=== PATIENT | male | born 1975 | race Caucasian/White ===

== ENCOUNTER → 2019-06-16 12:12 | Outpatient (BNVA) | payer BC, SELFPAY | PROVIDERS: Family Provider Nurse Practitioner Family; PCP Nurse Practitioner Family; Visit Provider Nurse Practitioner Family | DX: E11.9 Type 2 diabetes mellitus without complications (principal); R53.83 Other fatigue; E55.9 Vitamin D deficiency, unspecified; D64.9 Anemia, unspecified; E78.2 Mixed hyperlipidemia; E87.6 Hypokalemia | CPT/HCPCS: 36415; 80053; 80061; 81001; 81003; 82306; 82607; 82746; 83036; 83540; 83921; 84443; 85025 ==

== ENCOUNTER 2020-03-01 10:43 | Outpatient (CLI) | payer BC, SELFPAY ==
--- NOTE | 2020-03-01 11:05 | XR_ITS ---
WS: [id number] Cervical spine, 4 views, 03/01/2020 Clinical Data: headache neck pain Comparison: None. Findings: No compression fractures are seen. The disc heights are normal. There is no prevertebral so ft tissue swelling. The odontoid is unremarkable. The soft tissues of the neck and the lung apices ar e normal. XR/XR cervical spine 3V* [id number] Impression: Negative cervical spine.
== END 2020-03-01 10:44 | disposition home or self-care (01) ==
PROVIDERS: Family Provider Nurse Practitioner Family; PCP Nurse Practitioner Family; Visit Provider Nurse Practitioner Family
DX: M54.2 Cervicalgia (principal); R51.9 Headache, unspecified; E11.9 Type 2 diabetes mellitus without complications; R53.83 Other fatigue; E78.6 Lipoprotein deficiency; E55.9 Vitamin D deficiency, unspecified
CPT/HCPCS: 72040; 80053; 80061; 81003; 82306; 83036; 84443; 85025

== ENCOUNTER → 2020-06-13 14:10 | Outpatient (BNVA) | payer BC, SELFPAY | PROVIDERS: Family Provider Nurse Practitioner Family; PCP Nurse Practitioner Family; Referring Provider Nurse Practitioner Family; Visit Provider Specialist | DX: G43.019 Migraine without aura, intractable, without status migrainosus (principal); M54.2 Cervicalgia | CPT/HCPCS: 99203; 99204 ==

== ENCOUNTER 2020-10-19 14:36 | Emergency (ER) | payer BC, SELFPAY ==
[2020-10-19 15:09] VITALS: BP 133/81; PULSE 104; RESP 18; TEMP 36.9; O2SAT 96; BMI 32.1
[2020-10-19 16:29] VITALS: BP 109/73; PULSE 96; RESP 16; O2SAT 97
--- NOTE | 2020-10-19 16:49 | W.ED.GENADLT ---
Documented by User: FERNANDA Azul 10/20/20 07:14 HPI - General Adult General: Chief complaint: General Medical Stated complaint: Spotted fever SX unresponsive to [place] Time Seen by Provider: 10/19/20 16:24 Source: patient Mode of arrival: ambulatory Limitations: no limitations History of Present Illness: HPI narrative: Patient is a nice 45-year-old gentleman who presents to ED today along with his for complaints of generalized malaise, fatigue, and joint pains. Patient tells me approximately 3 to 4 weeks ago he noticed a tick bite to his left foot. He states approximately a week later he began feeling fatigued, experiencing joint pain, chills, and exercise intolerance. He states he was recently seen at a facility through [facility] and told it could be tick illness. He is on a 14-day course of doxycycline. He does report he felt slightly improved while taking the medication. He has not had any documented fevers. He does not have any abdominal pain, nausea, vomiting, changes to bowel movements. He has had one episode of a severe headache approximately a week ago however patient does have a history of migraines. No visual changes. No rash. Denies any skin changes at tick bite site. Associated symptoms: Reports headache(s) (had a migraine about a week ago but pain has subsided) and malaise; Deny chest pain, confusion, diaphoresis, nausea, rash, palpitations, syncope or vomiting Review of Systems Const: Reports: body aches, change in appetite, fatigue and malaise; Denies: fever(s), chills, change in weight, night sweats, diaphoresis, change in sleep pattern or daytime sleepiness Eyes: Denies: change in vision, blurry vision, photophobia, floaters or seeing flashes ENMT: Denies: throat pain, odynophagia, nasal congestion or sinus pain Card: Reports: dyspnea on exertion; Denies: chest pain, palpitations, irregular heart rhythm, edema, swelling of feet/ankles, lightheadedness, syncope, pre-syncope, orthopnea, leg pain with exertion or acrocyanosis Resp: Denies: productive cough, non-productive cough, wheezing, hemoptysis or chest congestion GI: Denies: abdominal pain, nausea, vomiting, diarrhea, change in bowel habits or change in stool character : Denies: flank pain, difficulty urinating, dysuria, urinary frequency, urinary urgency or urinary hesitancy Musc: Reports: joint pain (reports diffuse joint aches); Denies: neck pain, back pain, extremity pain, extremity swelling, joint swelling, joint redness, joint warmth, joint stiffness, limited range of motion or muscle weakness Skin/Breast: Reports: other (tick bite a few wks ago); Denies: rash Neuro: Reports: headache(s) (had a migraine about a week ago but pain has subsided); Denies: numbness in extremities, weakness in extremities, sensory changes, lack of coordination, difficulty walking, frequent falls, dizziness, vertigo, confusion, behavioral changes, Slurred speech present, difficulty communicating thoughts or seizure-like activity Psych: Denies: anxiety or depression PFSH ED PFSH: Medical History (Updated 10/19/20 @ 18:11 by JAVIER Madison) Bee sting allergy Bronchitis Cervical spine pain Contact dermatitis Diabetes mellitus, type II Patient is Type II DM. He is taking Metformin ER 1000 mg daily and weekly Ozempic. He is compliant with blood glucose monitoring at home. Environmental and seasonal allergies Patient has a history of chronic sinusitis with previous sinus surgery. He takes Sudafed as needed for decongestant. Fatigue Headache History of colon polyps Muscle spasm Shrimp allergy Sinusitis Vitamin D deficiency Will obtain updated labs for anemia, including iron and vitamin B12 Surgical History H/O colonoscopy Colonoscopy done August 01, 2018 due to history of colon polyps. Normal, repeat in 5 years. (July 2023) History of appendectomy History of sinus surgery Status post left rotator cuff repair Social History Smoking and tobacco status: never smoked Second hand smoke exposure: No Smoking risk assessment/counseling performed?: No Alcohol intake: never Desire information about alcohol rehabilitation?: No Counseling given: No Desire information about substance/drug rehabilitation?: No Counseling given: No Physical Exam Const: COMMON NORMALS: no acute distress, patient oriented x3, no limitations, alert and well nourished GENERAL APPEARANCE: cooperative ORIENTATION/CONSCIOUSNESS: Yes awake, Yes oriented to person, Yes oriented to place and Yes oriented to time HENMT: COMMON NORMALS: normocephalic and atraumatic HEAD & SCALP: normocephalic and atraumatic Neck/C-Spine: COMMON NORMALS: full ROM, no lymphadenopathy and no meningeal signs Resp: COMMON NORMALS: normal respiratory effort and clear to auscultation bilaterally AUSCULTATION: clear to auscultation bilaterally Cardio: COMMON NORMALS: regular rate and regular rhythm RATE: regular rate RHYTHM: regular rhythm GI: COMMON NORMALS: Normal to inspection, nondistended, normoactive bowel sounds present, Soft to palpation, non-tender, No hepatosplenomegaly present and no masses PALPATION: Yes Soft to palpation and Yes No hepatosplenomegaly present Back/Pelvis: COMMON NORMALS: thoracic and lumbar spine normal to inspection, no thoracic nor lumbar tenderness and thoraco-lumbar ROM normal Extremity: COMMON NORMALS: normal to inspection, full ROM, capillary refill normal, no joint enlargement, no clubbing, cyanosis or edema, no calf tenderness and no pedal edema GENERAL: Yes normal exam except as noted Neuro: KERWIN COMA SCALE: document GCS findings Closplint coma scale eye opening: Spontaneous Closplint coma scale verbal response: Orientated Kerwin coma scale motor response: Obey commands Kerwin coma scale total score: 15 COMMON NORMALS: patient oriented x3, CN's II-XII intact bilaterally, moves all extremities, no focal motor deficits, no sensory deficits noted and gait normal SENSORIUM/ORIENTATION: Yes alert, Yes oriented to person, Yes oriented to place and Yes oriented to time MENINGEAL SIGNS: Yes no meningeal signs Skin: COMMON NORMALS: no rashes or lesions noted GENERAL SKIN EXAM: no rashes or lesions noted TRAUMA: no lacerations or abrasions Course Vital Signs: Vital signs: Vital Signs Temperature 98.5 F 10/19/20 15:09 Pulse Rate 96 10/19/20 16:29 Respiratory Rate 16 10/19/20 16:29 Blood Pressure 109/73 10/19/20 16:29 Pulse Oximetry 97 10/19/20 16:29 MDM - General Adult MDM Narrative: Medical decision making narrative: Care transferred to JAVIER Godwin pending lab results. Lab Data: Labs: Lab Results 10/19/20 10/19/20 10/19/20 Range/Units 17:10 17:10 17:10 WBC 9.4 (4.0-10.0) 10^3/ uL RBC 5.54 H (4.1-5.3) 10^6/u L Hgb 16.7 H (11.7-16.6) g/dL Hct 49.0 (42.0-52.0) % MCV 88.4 (80-94) fL MCH 30.1 (28.0-34.0) pg MCHC 34.1 (30.0-36.0) g/dL RDW 12.4 (12.1-15.1) % Plt Count 207 (130-400) 10^3/c mm MPV 9.0 (7.4-10.4) fL Neut % (Auto) 36.3 % Lymph % (Auto) 50.1 % [place] % (Auto) 8.8 % Eos % (Auto) 2.7 % Baso % (Auto) 1.6 % Neut # (Auto) 3.41 (1.8-7.7) 10^3/u L Lymph # (Auto) 4.7 (0.8-4.8) 10^3/u L [place] # (Auto) 0.8 (0.2-0.9) 10^3/u L Eos # (Auto) 0.3 (0.0-0.8) 10^3/u L Baso # (Auto) 0.2 H (0.0-0.1) 10^3/u L Nucleated RBC % (a uto) 0 % Nucleated RBCs # 0.0 /100WBC D-Dimer 0.89 H (0-0.59) ug/mIFE U Sodium 135 L (136-145) mmol/L Potassium 4.0 (3.5-5.1) mmol/L Chloride 97 L (98-107) mmol/L Carbon Dioxide 27 (22-29) mmol/L Anion Gap 15.0 (5-19) BUN 11 (6-20) mg/dL Creatinine 0.8 (0.7-1.2) mg/dL GFR Calculation 103.6 (90-130) mL/min Glucose 154 H (65-115) mg/dL Calculated Osmolal ity 282 L (285-295) mOsm/k g Calcium 9.1 (8.5-10.5) mg/dL Total Bilirubin 0.7 (0.15-1.2) mg/dL AST 44 H (0-40) U/L ALT 65 H (0-41) U/L Alkaline Phosphata se 77 (40-130) IU/L Creatine Kinase 24 L (39-308) U/L C-Reactive Protein 28.0 H (0.0-4.9) mg/L Total Protein 7.4 (6.6-8.7) g/dL Albumin 4.2 (3.5-5.2) g/dL Globulin 3.2 (1.3-4.6) g/dL Discharge Plan Discharge Patient Disposition: Home Clinical Impression: Fatigue Qualifiers: Fatigue type: unspecified Qualified Code(s): R53.83 - Other fatigue Tick bite Qualifiers: Encounter type: subsequent encounter Qualified Code(s): W57.XXXD - Bitten or stung by nonvenomous insect and other nonvenomous arthropods, subsequent encounter Condition: Stable Prescriptions: No Action epinephrine [EpiPen 2-Luke] 0.3 mg/0.3 mL auto-injector 0.3 mg IM Q10M PRN (Reason: bee sting allergy ) Qty: 2 RF: 5 hydroxyzine HCl 25 mg tablet 25 mg PO Q8H PRN (Reason: itching) 10 Days Qty: 20 RF: 1 omeprazole 40 mg capsule,delayed release(DR/EC) 40 mg PO DAILY Qty: 90 RF: 5 lidocaine HCl [Xylocaine] 10 mg/mL (1 %) solution 2 ml IM ONCE Qty: 1 RF: 0 dexamethasone sodium phosphate 10 mg/mL solution 10 mg IM ONCE Qty: 1 RF: 0 metformin 500 mg tablet extended release 24 hr See Rx Instructions .ROUTE .COMPLEX Qty: 360 RF: 0 Ozempic 1 mg/dose (2 mg/1.5 mL) pen injector See Rx Instructions .ROUTE .COMPLEX Qty: 4 RF: 0 doxycycline hyclate 100 mg capsule 100 mg PO DAILY RF: 0 prednisone 20 mg tablet 40 mg PO DAILY RF: 0 methocarbamol 750 mg tablet 750 mg PO BEDTIME RF: 0 Zyrtec 10 mg capsule 10 mg PO DAILY RF: 0 Discharge Orders: Discharge ED (Routine); Ordered 10/19/20 Ordered By: Agustin Capone Referrals: DOLORES Ontiveros, [facility] [Primary Care Provider] - Discharge Diet: Usual diet Discharge Activity: Increase activity as tolerated Patient Instructions: Opioid Safety Activity Restrictions/Additional Instructions: Drink plenty of fluids. Stay out of the heat of the day. Activity as tolerated. Continue with routine medications as directed. Continue with doxycycline 100 mg twice a day as scheduled. Follow-up with primary care in 2 to 3 days. Return to the ER for high fever, shortness of breath, or new concerns. Sign Out Sign Out Data: Patient Sign Out occurred on 10/19/20 at 17:06. Patient's care was discussed, and care was transferred from to Agustin Capone. Coding Level of Care Code ED Mosaic Tiler for Chg Fwd Exam Comprehensive Documented by User: JAVIER Madison 10/19/20 18:15 HPI - General Adult General: Chief complaint: General Medical Stated complaint: Spotted fever SX unresponsive to TX Time Seen by Provider: 10/19/20 16:24 Review of Systems General: Reports: 10 or more systems reviewed and unremarkable except in HPI and below Const: Reports: fatigue PFS ED PFSH: Medical History (Updated 10/19/20 @ 18:11 by JAVIER Madison) Bee sting allergy Bronchitis Cervical spine pain Contact dermatitis Diabetes mellitus, type II Patient is Type II DM. He is taking Metformin ER 1000 mg daily and weekly Ozempic. He is compliant with blood glucose monitoring at home. Environmental and seasonal allergies Patient has a history of chronic sinusitis with previous sinus surgery. He takes Sudafed as needed for decongestant. Fatigue Headache History of colon polyps Muscle spasm Shrimp allergy Sinusitis Vitamin D deficiency Will obtain updated labs for anemia, including iron and vitamin B12 Surgical History H/O colonoscopy Colonoscopy done August 01, 2018 due to history of colon polyps. Normal, repeat in 5 years. (July 2023) History of appendectomy History of sinus surgery Status post left rotator cuff repair Social History Smoking and tobacco status: never smoked Second hand smoke exposure: No Smoking risk assessment/counseling performed?: No Alcohol intake: never Desire information about alcohol rehabilitation?: No Counseling given: No Desire information about substance/drug rehabilitation?: No Counseling given: No Physical Exam Const: COMMON NORMALS: no acute distress and patient oriented x3 GENERAL APPEARANCE: cooperative HENMT: COMMON NORMALS: normocephalic and Normal external nose present HEAD & SCALP: normal to inspection and normocephalic NOSE: Normal external nose present Eye: GENERAL EYE: appearance normal, both eyes and all related structures Neck/C-Spine: COMMON NORMALS: full ROM Chest: COMMONS NORMALS: normal inspection of the chest Resp: COMMON NORMALS: normal respiratory effort EFFORT & INSPECTION: Yes able to speak in complete sentences Cardio: COMMON NORMALS: regular rate and regular rhythm RATE: regular rate RHYTHM: regular rhythm GI: COMMON NORMALS: non-tender Extremity: COMMON NORMALS: normal to inspection Neuro: COMMON NORMALS: patient oriented x3 and moves all extremities Psych: COMMON NORMALS: mental status grossly normal and cooperative Skin: COMMON NORMALS: no rashes or lesions noted GENERAL SKIN EXAM: no rashes or lesions noted Course ED course: 1700, assumed care of patient from Anna Kaur PA-C, awaiting lab results. Patient is stable. Vital Signs: Vital signs: Vital Signs Temperature 98.5 F 10/19/20 15:09 Pulse Rate 96 10/19/20 16:29 Respiratory Rate 16 10/19/20 16:29 Blood Pressure 109/73 10/19/20 16:29 Pulse Oximetry 97 10/19/20 16:29 MDM - General Adult MDM Narrative: Medical decision making narrative: Patient comes in today for complaints of generalized fatigue. Patient was started on doxycycline 5 days ago and reports some mild improvement since starting the doxycycline for a probable tickborne illness. Exam shows a normal-appearing adult male with normal respirations, skin is warm and dry, no edema is in the extremity, vital signs are normal. Differential diagnosis includes but not limited to heat exhaustion, tickborne illness, depression. Laboratory values noted a blood count that was unremarkable. Patient did have on his metabolic panel a sodium of 135, glucose 154, mild elevation in liver enzymes. CRP was slightly elevated at 24, D-dimer was slightly elevated at 0.8, CPK was normal. EKG was done after noticing some mild elevation in D-dimer which showed no strain on the heart, patient denied any chest pain or significant shortness of breath I did not think that a PE was part of the differential. When asked about COVID-19 vaccination patient has not been vaccinated but does report a history of COVID-19. I believe the patient probably has a tickborne illness as he can relate to a tick bite which got really red and inflamed about 1 month ago. Patient should continue with the doxycycline. Other possibilities may relate to Kelby-Michael virus, COVID-19, or heat exhaustion. Lab Data: Labs: Lab Results 10/19/20 10/19/20 10/19/20 Range/Units 17:10 17:10 17:10 WBC 9.4 (4.0-10.0) 10^3/ uL RBC 5.54 H (4.1-5.3) 10^6/u L Hgb 16.7 H (11.7-16.6) g/dL Hct 49.0 (42.0-52.0) % MCV 88.4 (80-94) fL MCH 30.1 (28.0-34.0) pg MCHC 34.1 (30.0-36.0) g/dL RDW 12.4 (12.1-15.1) % Plt Count 207 (130-400) 10^3/c mm MPV 9.0 (7.4-10.4) fL Neut % (Auto) 36.3 % Lymph % (Auto) 50.1 % [place] % (Auto) 8.8 % Eos % (Auto) 2.7 % Baso % (Auto) 1.6 % Neut # (Auto) 3.41 (1.8-7.7) 10^3/u L Lymph # (Auto) 4.7 (0.8-4.8) 10^3/u L [place] # (Auto) 0.8 (0.2-0.9) 10^3/u L Eos # (Auto) 0.3 (0.0-0.8) 10^3/u L Baso # (Auto) 0.2 H (0.0-0.1) 10^3/u L Nucleated RBC % (a uto) 0 % Nucleated RBCs # 0.0 /100WBC D-Dimer 0.89 H (0-0.59) ug/mIFE U Sodium 135 L (136-145) mmol/L Potassium 4.0 (3.5-5.1) mmol/L Chloride 97 L (98-107) mmol/L Carbon Dioxide 27 (22-29) mmol/L Anion Gap 15.0 (5-19) BUN 11 (6-20) mg/dL Creatinine 0.8 (0.7-1.2) mg/dL GFR Calculation 103.6 (90-130) mL/min Glucose 154 H (65-115) mg/dL Calculated Osmolal ity 282 L (285-295) mOsm/k g Calcium 9.1 (8.5-10.5) mg/dL Total Bilirubin 0.7 (0.15-1.2) mg/dL AST 44 H (0-40) U/L ALT 65 H (0-41) U/L Alkaline Phosphata se 77 (40-130) IU/L Creatine Kinase 24 L (39-308) U/L C-Reactive Protein 28.0 H (0.0-4.9) mg/L Total Protein 7.4 (6.6-8.7) g/dL Albumin 4.2 (3.5-5.2) g/dL Globulin 3.2 (1.3-4.6) g/dL EKG Data^: EKG 1: Attestation: I personally reviewed and interpreted this EKG as follows: (1800, EKG shows a normal sinus rhythm with a regular rate at 80 bpm. There is no sign of any ectopy or ST elevation. No sign of any stress on the heart. No prior exam is available for comparison.) Discharge Plan Discharge Patient Disposition: Home Clinical Impression: Fatigue Qualifiers: Fatigue type: unspecified Qualified Code(s): R53.83 - Other fatigue Tick bite Qualifiers: Encounter type: subsequent encounter Qualified Code(s): W57.XXXD - Bitten or stung by nonvenomous insect and other nonvenomous arthropods, subsequent encounter Condition: Stable Prescriptions: No Action epinephrine [EpiPen 2-Luke] 0.3 mg/0.3 mL auto-injector 0.3 mg IM Q10M PRN (Reason: bee sting allergy ) Qty: 2 RF: 5 hydroxyzine HCl 25 mg tablet 25 mg PO Q8H PRN (Reason: itching) 10 Days Qty: 20 RF: 1 omeprazole 40 mg capsule,delayed release(DR/EC) 40 mg PO DAILY Qty: 90 RF: 5 lidocaine HCl [Xylocaine] 10 mg/mL (1 %) solution 2 ml IM ONCE Qty: 1 RF: 0 dexamethasone sodium phosphate 10 mg/mL solution 10 mg IM ONCE Qty: 1 RF: 0 metformin 500 mg tablet extended release 24 hr See Rx Instructions .ROUTE .COMPLEX Qty: 360 RF: 0 Ozempic 1 mg/dose (2 mg/1.5 mL) pen injector See Rx Instructions .ROUTE .COMPLEX Qty: 4 RF: 0 doxycycline hyclate 100 mg capsule 100 mg PO DAILY RF: 0 prednisone 20 mg tablet 40 mg PO DAILY RF: 0 methocarbamol 750 mg tablet 750 mg PO BEDTIME RF: 0 Zyrtec 10 mg capsule 10 mg PO DAILY RF: 0 Discharge Orders: Discharge ED (Routine); Ordered 10/19/20 Ordered By: Agustin Capone Referrals: DOLORES Ontiveros, [facility] [Primary Care Provider] - Discharge Diet: Usual diet Discharge Activity: Increase activity as tolerated Patient Instructions: Opioid Safety Activity Restrictions/Additional Instructions: Drink plenty of fluids. Stay out of the heat of the day. Activity as tolerated. Continue with routine medications as directed. Continue with doxycycline 100 mg twice a day as scheduled. Follow-up with primary care in 2 to 3 days. Return to the ER for high fever, shortness of breath, or new concerns. Sign Out Sign Out Data: Patient Sign Out occurred on 10/19/20 at 17:06. Patient's care was discussed, and care was transferred from to Agustin Capone. Coding Level of Care Code ED Mosaic Tiler for Betty Fwd Exam Comprehensive
[2020-10-19 17:20] LABS: Basophils # 0.2 10^3/uL (0.0-0.1); Basophils % 1.6 %; Eosinophils # 0.3 10^3/uL (0.0-0.8); Eosinophils % 2.7 %; Hemoglobin 16.7 g/dL (11.7-16.6); Lymphocytes # 4.7 10^3/uL (0.8-4.8); Lymphocytes % 50.1 %; Mean Corpuscular HGB Conc 34.1 g/dL (30.0-36.0); Mean Corpuscular Hemoglobin 30.1 pg (28.0-34.0); Mean Corpuscular Volume 88.4 fL (80-94); Monocytes # 0.8 10^3/uL (0.2-0.9); Monocytes % 8.8 %; Neutrophils # 3.41 10^3/uL (1.8-7.7); Neutrophils % 36.3 %; Nucleated Red Blood Cells % 0 %; Platelet Count 207 10^3/cmm (130-400); Red Blood Count 5.54 10^6/uL (4.1-5.3); Red Cell Distribution Width 12.4 % (12.1-15.1); White Blood Count 9.4 10^3/uL (4.0-10.0)
[2020-10-19 17:33] LABS: D Dimer 0.89 ug/mIFEU (0-0.59)
[2020-10-19 17:42] LABS: Alanine Aminotransferase 65 U/L (0-41); Albumin Level 4.2 g/dL (3.5-5.2); Alkaline Phosphatase 77 IU/L (40-130); Aspartate Amino Transferase 44 U/L (0-40); Blood Urea Nitrogen 11 mg/dL (6-20); Calcium 9.1 mg/dL (8.5-10.5); Carbon Dioxide 27 mmol/L (22-29); Chloride 97 mmol/L (98-107); Creatine Phosphokinase 24 U/L (39-308); Globulin 3.2 g/dL (1.3-4.6); Glomerular Filtration Rate 103.6 mL/min (90-130); Glucose 154 mg/dL (65-115); Osmolality Calculated 282 mOsm/kg (285-295); Sodium 135 mmol/L (136-145); Total Bilirubin 0.7 mg/dL (0.15-1.2); Total Protein 7.4 g/dL (6.6-8.7)
[2020-10-19 17:44] LABS: Slide Review Slide Review Perform
--- NOTE | 2020-10-19 17:45 | ECG_ITS ---
[facility] Test Date: 2020-10-19 Pat Name: Gorge Arboleda Department: Room: Gender: Male [employer]: : 1975 Requested By: Agustin Honeycutt Order Number: [id number] Dolan MD: Debo Resendiz M.D. Measurements Intervals [place] Rate: 80 P: 37 VA: 155 QRS: 35 QRSD: 99 T: 39 QT: 361 QTc: 419 Interpretive Statements SINUS RHYTHM No previous ECG available for comparison Electronically Signed On 10-19-2020 20:21:03 CDT by Debo Resendiz M.D. [id number]
[2020-10-19] MEDS: sodium chloride 0.9% 1,000 ML 999 ML IV (17:48)
[2020-10-21 11:33] LABS: Lyme AB Screen <0.90 index
[2020-10-24 17:28] LABS: E. Chaffeensis AB IGG <1:64; E. Chaffeensis AB IGM <1:20; RMSF IGG NOT DETECTED; RMSF IGM NOT DETECTED
== END 2020-10-19 18:37 | disposition home or self-care (01) ==
PROVIDERS: Physician Assistant; Emergency Provider Nurse Practitioner Family; PCP Nurse Practitioner Family
DX: R53.83 Other fatigue (principal); W57.XXXD Bitten or stung by nonvenomous insect and other nonvenomous arthropods, subsequent encounter; Z79.84 Long term (current) use of oral hypoglycemic drugs; E11.9 Type 2 diabetes mellitus without complications; Z79.899 Other long term (current) drug therapy
CPT/HCPCS: 80053; 82550; 85025; 85378; 86140; 86618; 86666; 86757; 93005; 96360; 99283; J7030

== ENCOUNTER 2021-05-23 09:24 | Outpatient (CLI) | payer BC, SELFPAY ==
[2021-05-23 10:30] LABS: Estmated Average Glucose 143; Hemoglobin A1C 6.6 % (4.0-6.0)
== END 2021-05-23 09:25 | disposition home or self-care (01) ==
PROVIDERS: PCP Nurse Practitioner Family; Visit Provider Nurse Practitioner Family
DX: E11.9 Type 2 diabetes mellitus without complications (principal)
CPT/HCPCS: 83036

== ENCOUNTER → 2021-09-23 11:20 | Outpatient (BNVA) | payer BC, SELFPAY | PROVIDERS: PCP Nurse Practitioner Family; Visit Provider Nurse Practitioner | DX: M62.838 Other muscle spasm (principal) | CPT/HCPCS: 80053 ==

== ENCOUNTER → 2022-10-08 11:17 | Outpatient (BNVA) | payer OTHER, SELFPAY | PROVIDERS: PCP Nurse Practitioner Family; Visit Provider Nurse Practitioner | DX: R50.9 Fever, unspecified (principal) | CPT/HCPCS: 80053; 85025; 86000; 86618; 86666; 86757; 93005 ==

== ENCOUNTER → 2023-05-13 10:05 | Outpatient (BNVA) | payer OTHER, SELFPAY | PROVIDERS: PCP Nurse Practitioner Family; Visit Provider Nurse Practitioner Family | DX: M25.819 Other specified joint disorders, unspecified shoulder (principal); E11.9 Type 2 diabetes mellitus without complications; E78.6 Lipoprotein deficiency; Z79.899 Other long term (current) drug therapy | CPT/HCPCS: 80053; 80061; 83036; 85025 ==

== ENCOUNTER 2023-05-14 12:56 | Outpatient (CLI) | payer OTHER, SELFPAY ==
--- NOTE | 2023-05-14 13:06 | XRR_ITS ---
PROCEDURE INFORMATION: Exam: XR Left Shoulder Exam date and time: 05/14/2023 1:36 PM Age: 47 years old Clinical indication: Pain; Bilateral; Prior surgery; Surgery date: 6+ months; Surgery type: Lt shoulder x 10yr ago; Additional info: M25.819 - other specified joint disorders, unspecified sh. . . TECHNIQUE: Imaging protocol: Radiologic exam of the left shoulder. Views: 2 or more views. COMPARISON: CR XR cervical spine 3V* [id number] 03/01/2020 11:10 AM FINDINGS: Bones/joints: The glenohumeral articulation is grossly intact. The acromioclavicular articulation is grossly intact with mild osteoarthritis. Soft tissues: No gross soft tissue abnormality. XR/XR shoulder LT min 2V* [id number] IMPRESSION: 1. No evidence of fracture or subluxation. If there is concern for labral, muscle or tendon pathology, follow-up outpatient MRI may be helpful.
--- NOTE | 2023-05-14 13:09 | XRR_ITS ---
PROCEDURE INFORMATION: Exam: XR Right Shoulder Exam date and time: 05/14/2023 1:36 PM Age: 47 years old Clinical indication: Pain; Shoulder; Bilateral; Additional info: Impingement of shoulder/pain TECHNIQUE: Imaging protocol: Radiologic exam of the right shoulder. Views: 2 or more views. COMPARISON: CR XR cervical spine 3V* [id number] 03/01/2020 11:10 AM FINDINGS: Bones/joints: The glenohumeral articulation is grossly intact. The acromioclavicular articulation is grossly intact with mild osteoarthritis. Soft tissues: No gross soft tissue abnormality. XR/XR shoulder RT min 2V* [id number] IMPRESSION: 1. No evidence of fracture or subluxation. If there is concern for labral, muscle or tendon pathology, follow-up outpatient MRI may be helpful.
== END 2023-05-14 12:57 | disposition home or self-care (01) ==
LOC: RAD 13:02
PROVIDERS: PCP Nurse Practitioner Family; Visit Provider Nurse Practitioner Family
DX: M25.512 Pain in left shoulder (principal); M25.819 Other specified joint disorders, unspecified shoulder; M25.511 Pain in right shoulder
CPT/HCPCS: 73030

== ENCOUNTER → 2023-05-20 08:57 | Outpatient (BNVA) | payer OTHER, SELFPAY | PROVIDERS: PCP Nurse Practitioner Family; Visit Provider Nurse Practitioner Family | DX: E11.9 Type 2 diabetes mellitus without complications (principal); D64.9 Anemia, unspecified | CPT/HCPCS: 80053; 83550; 84443; 85025 ==

== ENCOUNTER 2023-08-09 06:46 | Outpatient (CLI) | payer OTHER, SELFPAY ==
--- NOTE | 2023-08-09 07:15 | XR_ITS ---
WS: [id number] Examination: XR cervical spine min 6V [id number] Reason for Exam: M54.2 - Cervicalgia Date: August 09, 2023 Comparison: March 01, 2020 Findings: The SARAH and the C1-2 relationship are intact. There is no prevertebral swelling The vertebral body heights are maintained. There is no wedging or compression. There is no subluxation. The spinolaminar line is intact. The disc space heights are maintained. The neural foramen are not well visualized. Impression: There is no compression or subluxation. The disc space heights are maintained.
--- NOTE | 2023-08-09 07:15 | US_ITS ---
WS: [id number] Complete ABDOMINAL ULTRASOUND HISTORY: K81.9 - Cholecystitis, unspecified COMPARISON: None available. Liver: 16.2 cm in length. Coarse echotexture from hepatic steatosis. No mass. Portal Vein: Normal hepatopetal flow with monophasic waveform. Gallbladder: Normally distended gallbladder with no stones or wall thickening. CBD: 0.3 cm Pancreas: Normal size and echogenicity. Right kidney: 12.8 cm x 4.9 x 5.6 cm. Cortex:1.7 cm. Normal size and echogenicity. No hydronephrosis or mass. Left kidney: 13.7 cm x 5.4 cm x 6.0 cm. Cortex: 2.5 cm. Normal size and echogenicity. No hydronephrosis or mass. Spleen: 10.8 cm. Normal size and echogenicity. Aorta and IVC: Unremarkable abdominal aorta and IVC. Impression: 1. Normal gallbladder. 2. Normal size liver with mild hepatic steatosis.
== END 2023-08-09 06:47 | disposition home or self-care (01) ==
LOC: RAD 06:47
PROVIDERS: PCP Nurse Practitioner Family; Visit Provider Nurse Practitioner Family
DX: K81.9 Cholecystitis, unspecified (principal); M54.2 Cervicalgia; G89.29 Other chronic pain; R20.0 Anesthesia of skin; R20.2 Paresthesia of skin; K76.0 Fatty (change of) liver, not elsewhere classified
CPT/HCPCS: 72052; 76700

== ENCOUNTER → 2023-08-23 13:16 | Outpatient (BNVA) | payer OTHER, SELFPAY | PROVIDERS: PCP Nurse Practitioner Family; Visit Provider Nurse Practitioner Family | DX: E11.9 Type 2 diabetes mellitus without complications (principal); K81.9 Cholecystitis, unspecified; R53.83 Other fatigue; Z79.899 Other long term (current) drug therapy | CPT/HCPCS: 80053; 81003; 82150; 82728; 83036; 83690; 85025 ==

== ENCOUNTER → 2023-08-26 08:39 | Outpatient (BNVA) | payer OTHER, SELFPAY | PROVIDERS: PCP Nurse Practitioner Family; Visit Provider Nurse Practitioner Family | DX: E87.5 Hyperkalemia (principal); Z79.899 Other long term (current) drug therapy; R53.83 Other fatigue; E11.9 Type 2 diabetes mellitus without complications | CPT/HCPCS: 80053; 82150; 86003; 86008 ==

== ENCOUNTER 2023-11-26 15:19 | Outpatient (CLI) | payer OTHER, SELFPAY ==
--- NOTE | 2023-11-26 15:30 | CT_ITS ---
WS: [id number] CT SINUSES TECHNIQUE: Noncontrast CT of the paranasal sinuses with coronal and sagittal reformatted images. CLINICAL INFORMATION: J32.9 - Chronic sinusitis, unspecified COMPARISON: None. DLP: 421.[address] scans at [facility] use at least one of these dose optimization techniques: automated e xposure control; mA and/or kV adjustment per patient size (includes targeted exams where dose is matc hed to clinical indication); or iterative reconstruction. FINDINGS: Prior postoperative changes bilateral maxillary antrostomies with uncinectomies and ethmoidectomies. RIGHT to LEFT nasal septal deviation with a LEFT directed spur measuring 3.5 mm. Fluid and secretions in the RIGHT greater than LEFT maxillary sinuses compatible with sinusitis. Air-fluid levels in the frontal sinuses. Mild mucosal thickening in the ethmoid air cells and sphenoid sinus ostia. Sphenoid sinuses are well aerated. Mastoid air cells are well aerated. Normal posterior nasopharynx. Normal parapharyngeal fat. Normal p osterior fossa. CT/CT sinus wo con* [id number] IMPRESSION: 1. Prior postoperative changes bilateral maxillary antrostomies with uncinecto mies and ethmoidectomies. 2. Sinusitis with air-fluid levels in the frontal sinuses and RIGHT greater th an LEFT maxillary sinuses. 3. Mild mucosal thickening in the ethmoid air cells and sphenoid sinus ostia. 4. Mastoid air cells are well aerated. 5. RIGHT to LEFT nasal septal deviation measuring 3.5 mm
== END 2023-11-26 15:20 | disposition home or self-care (01) ==
LOC: RAD 15:19
PROVIDERS: PCP Nurse Practitioner Family; Visit Provider Nurse Practitioner Family
DX: J32.9 Chronic sinusitis, unspecified (principal); Z98.890 Other specified postprocedural states; J34.2 Deviated nasal septum; J34.89 Other specified disorders of nose and nasal sinuses
CPT/HCPCS: 70486

== ENCOUNTER → 2023-12-08 08:40 | Outpatient (BNVA) | payer OTHER, SELFPAY | PROVIDERS: PCP Nurse Practitioner Family; Visit Provider Nurse Practitioner Family | DX: Z79.899 Other long term (current) drug therapy (principal); E11.9 Type 2 diabetes mellitus without complications | CPT/HCPCS: 80053; 80061; 81003; 82306; 83036; 84443; 85025 ==

== ENCOUNTER → 2023-12-15 10:33 | Outpatient (BNVA) | payer OTHER, SELFPAY | PROVIDERS: PCP Nurse Practitioner Family; Visit Provider Specialist | DX: G56.03 Carpal tunnel syndrome, bilateral upper limbs (principal) | CPT/HCPCS: 73130 ==

== ENCOUNTER 2024-02-16 06:45 | Day surgery (SDC) | payer OTHER, SELFPAY ==
[2024-02-16 07:03] VITALS: BP 127/79; PULSE 72; RESP 18; TEMP 36.4; O2SAT 96; BMI 31.4
[2024-02-16] MEDS: sodium chloride 0.9% 1,000 ML 30 ML IV (07:15)
[2024-02-16 07:20] LABS: Glucose Point of Care 155 mg/dL (70-110)
--- NOTE | 2024-02-16 07:52 | ANES.PREANE2 ---
Pre-Anesthetic Assessment Height/Weight: Height 1.88 m Weight 111.13 kg Temp Pulse Resp BP Pulse Ox O2 Del Method 97.5 F L 72 18 127/79 96 Room Air 02/16/24 07:03 02/16/24 07:03 02/16/24 07:03 02/16/24 07:03 02/16/24 07:03 02/16/24 07:03 Preop Diagnosis: HO colon polyps Operation Date: 02/16/24 08:00 Proposed Procedures p -EGD - 68506. 94704, G0105, Z86.010(Not Applicable) - Cesar Pisano DO s Colonoscopy(Not Applicable) - Cesar Pisano DO Familial anesthetic complications: slow to wake Was Beta Richard taken within 24 hours: N/A Was Clonidine taken within 24 hours: N/A Last intake: Intake Last Liquid Date 02/15/24 Last Liquid Time 23:30 Last Solid Date 02/14/24 Last Solid Time 18:00 Social No alcohol and No tobacco Exam alert and oriented x 3 Airway Submandibular: within normal limits Cervical ROM: within normal limits Mallampati: Class I Dentition: full Pulmonary reports bad seasonal allergies CV/HEM None reported None reported Hepatic None reported GI Gastroesophageal Reflux Disease Metabolic Diabetes Mellitus [facility] [place] None reported Neuropsych None reported Anesthetic Plan ASA status: 3 Anesthesia: Anesthesia Evaluation, General and MAC Medications/Allergies Home Medications Medication Instructions Recorded Confirmed Last Taken Type cetirizine 10 mg capsule (Zyrtec) 10 mg PO DAILY 10/19/20 02/16/24 02/15/24 History amoxicillin 875 mg-potassium 1 tab PO BID 21 days #42 tabs 12/08/23 02/16/24 02/14/24 Rx clavulanate 125 mg tablet fluticasone propionate 50 2 spray intranasal BID allergy 12/13/23 02/16/24 02/15/24 Rx mcg/actuation nasal symptoms #16 grams spray,suspension (Flonase Allergy Relief) empagliflozin 25 mg tablet 25 mg PO DAILY #90 tabs 12/16/23 02/16/24 02/15/24 Rx (Jardiance) pantoprazole 40 mg tablet,delayed 40 mg PO BID 6 weeks #84 tabs 12/31/23 02/16/24 02/15/24 Rx release (Protonix) methocarbamol 750 mg tablet 750 mg PO BEDTIME PRN muscle spasm 02/14/24 02/16/24 02/14/24 History semaglutide 1 mg/dose (4 mg/3 mL) 1 mg SUBCUT .WEEKLY 02/14/24 02/16/24 02/08/24 History subcutaneous pen injector (Ozempic) Allergies Allergy/AdvReac Type Severity Reaction Status Date / Time iodine Allergy Mild swelling Verified 02/14/24 11:11 Current Medications Generic Name Dose Route Start Last Admin Trade Name Damian PRN Reason Stop Dose Admin Sodium Chloride 1,000 mls @ 30 mls/hr 02/16/24 07:00 02/16/24 07:15 Sodium Chloride 0.9% IV 02/17/24 06:59 30 mls/hr .Q24H TELLO Administration PFSH Anesthesia Medical History Mixed hyperlipidemia Hepatic steatosis Colon cancer screening Last Colonoscopy 2019 - Normal - [facility] Dr. Gary Carpal tunnel syndrome on both sides Chronic sinusitis Cholecystitis Numbness and tingling of upper extremity Numbness and tingling of both upper extremities Nerve compression Hyperkalemia Medication management Impingement of shoulder Acute bacterial sinusitis Lower respiratory infection Infected insect bite of abdomen Tick fever Contact dermatitis Sinusitis Bronchitis Fatigue Muscle spasm Cervical spine pain Headache Diabetes mellitus, type II Patient is Type II DM. He is taking Actos daily and weekly Ozempic. He is compliant with blood glucose monitoring at home. Vitamin D deficiency Will obtain updated labs for anemia, including iron and vitamin B12 Environmental and seasonal allergies Patient has a history of chronic sinusitis with previous sinus surgery. He takes Sudafed as needed for decongestant. Shrimp allergy Bee sting allergy History of colon polyps History of Colon Polyps - last colonoscopy 2019 - [facility] Dr. Gary Surgical History H/O colonoscopy Colonoscopy done August 01, 2018 due to history of colon polyps. Normal, repeat in 5 years. (July 2023) History of appendectomy Status post left rotator cuff repair History of sinus surgery Social History Smoking and tobacco/nicotine status: former use of tobacco/nicotine Second hand smoke exposure: No Alcohol intake: never Substance/Drug Use: never Data Anesthesia Cardiac Studies: No Data to Display
--- NOTE | 2024-02-16 07:53 | PM.HP ---
Providers/Chief Complaint Primary Care Provider: JAVIER Lopes Chief Complaint: Z86.010 History of Present Illness Gorge Arboleda is a 48 year old male Review of Systems General: Reports: 10 or more systems reviewed and unremarkable except in HPI and below Medications/Allergies Home Medications Medication Instructions Recorded Confirmed Last Taken Type cetirizine 10 mg capsule (Zyrtec) 10 mg PO DAILY 10/19/20 02/16/24 02/15/24 History amoxicillin 875 mg-potassium 1 tab PO BID 21 days #42 tabs 12/08/23 02/16/24 02/14/24 Rx clavulanate 125 mg tablet fluticasone propionate 50 2 spray intranasal BID allergy 12/13/23 02/16/24 02/15/24 Rx mcg/actuation nasal symptoms #16 grams spray,suspension (Flonase Allergy Relief) empagliflozin 25 mg tablet 25 mg PO DAILY #90 tabs 12/16/23 02/16/24 02/15/24 Rx (Jardiance) pantoprazole 40 mg tablet,delayed 40 mg PO BID 6 weeks #84 tabs 12/31/23 02/16/24 02/15/24 Rx release (Protonix) methocarbamol 750 mg tablet 750 mg PO BEDTIME PRN muscle spasm 02/14/24 02/16/24 02/14/24 History semaglutide 1 mg/dose (4 mg/3 mL) 1 mg SUBCUT .WEEKLY 02/14/24 02/16/24 02/08/24 History subcutaneous pen injector (Ozempic) Allergies Allergy/AdvReac Type Severity Reaction Status Date / Time iodine Allergy Mild swelling Verified 02/14/24 11:11 PFSH Acute PFSH: Medical History Mixed hyperlipidemia Hepatic steatosis Colon cancer screening Last Colonoscopy 2019 - Normal - [facility] Dr. Gary Carpal tunnel syndrome on both sides Chronic sinusitis Cholecystitis Numbness and tingling of upper extremity Numbness and tingling of both upper extremities Nerve compression Hyperkalemia Medication management Impingement of shoulder Acute bacterial sinusitis Lower respiratory infection Infected insect bite of abdomen Tick fever Contact dermatitis Sinusitis Bronchitis Fatigue Muscle spasm Cervical spine pain Headache Diabetes mellitus, type II Patient is Type II DM. He is taking Actos daily and weekly Ozempic. He is compliant with blood glucose monitoring at home. Vitamin D deficiency Will obtain updated labs for anemia, including iron and vitamin B12 Environmental and seasonal allergies Patient has a history of chronic sinusitis with previous sinus surgery. He takes Sudafed as needed for decongestant. Shrimp allergy Bee sting allergy History of colon polyps History of Colon Polyps - last colonoscopy 2018 - [facility] Dr. Gary Surgical History H/O colonoscopy Colonoscopy done August 01, 2018 due to history of colon polyps. Normal, repeat in 5 years. (July 2023) History of appendectomy Status post left rotator cuff repair History of sinus surgery Social History Smoking and tobacco/nicotine status: former use of tobacco/nicotine Second hand smoke exposure: No Alcohol intake: never Substance/Drug Use: never Vitals/I&O/Wt Last Vital Signs Temp 97.5 F L 02/16/24 07:03 Pulse 72 02/16/24 07:03 Resp 18 02/16/24 07:03 BP 127/79 02/16/24 07:03 Pulse Ox 96 02/16/24 07:03 O2 Del Method Room Air 02/16/24 07:03 Weight last 48 hrs Weight 245 lb A&P Assessment and plan (1) History of colon polyps: (2) GERD (gastroesophageal reflux disease): Plan EGD and colonoscopy Attestations Medical Necessity Statement*: Home Coding Level of Care Code Acute Code for Chg Fwd Diagnoses History of colon polyps Z86.010 GERD (gastroesophageal reflux disease) K21.9
[2024-02-16 08:15] VITALS: BP 117/79; PULSE 74; RESP 16; TEMP 36.1; O2SAT 95
--- NOTE | 2024-02-16 08:21 | ANE.PACU2 ---
Inpatient post-anesthesia follow up: Airway intact: Yes Vital signs: Temperature 97 F Pulse Rate 74 Respiratory Rate 16 Blood Pressure 117/79 Pulse Oximetry 95 Oxygen Delivery Me thod Room Air Oxygen Flow Rate Fraction of Inspir ed Oxygen Hydration adequate: Yes Nausea and vomiting: No Pain level: 1 Mental status: Baseline
[2024-02-16 08:36] VITALS: BP 123/84; PULSE 78; RESP 18; O2SAT 95
== END 2024-02-16 08:47 | disposition home or self-care (01) ==
PROVIDERS: PCP Nurse Practitioner Family; Visit Provider Surgery
PROC: 0DJ08ZZ Inspection of Upper Intestinal Tract, Via Natural or Artificial Opening Endoscopic (ICD-10-PCS; CPT 43235; principal; 2024-02-16 08:00)
PROC: 0DJD8ZZ Inspection of Lower Intestinal Tract, Via Natural or Artificial Opening Endoscopic (ICD-10-PCS; CPT 45378; 2024-02-16 08:00)
DX: Z12.11 Encounter for screening for malignant neoplasm of colon (principal); Z86.0100 Personal history of colon polyps, unspecified; K29.50 Unspecified chronic gastritis without bleeding; K51.40 Inflammatory polyps of colon without complications; D12.5 Benign neoplasm of sigmoid colon; K21.9 Gastro-esophageal reflux disease without esophagitis; E11.9 Type 2 diabetes mellitus without complications; E78.2 Mixed hyperlipidemia; Z87.891 Personal history of nicotine dependence
CPT/HCPCS: 36416; 43239; 45385; 82962; 88305; 88342; J2704; J7030

== ENCOUNTER → 2024-03-29 10:00 | Outpatient (BNVA) | payer OTHER, SELFPAY | PROVIDERS: PCP Nurse Practitioner Family; Visit Provider Nurse Practitioner Family | DX: E11.9 Type 2 diabetes mellitus without complications (principal); E55.9 Vitamin D deficiency, unspecified; K76.0 Fatty (change of) liver, not elsewhere classified; E78.2 Mixed hyperlipidemia | CPT/HCPCS: 80053; 80061; 82306; 83036; 85025 ==

== ENCOUNTER → 2024-06-23 11:50 | Outpatient (BNVA) | payer OTHER, SELFPAY | PROVIDERS: PCP Nurse Practitioner Family; Visit Provider Nurse Practitioner Family | DX: R68.89 Other general symptoms and signs (principal) | CPT/HCPCS: 87400 ==

== ENCOUNTER 2024-08-14 16:13 | Emergency (ER) | payer OTHER, SELFPAY ==
--- NOTE | 2024-08-14 16:13 | XRR_ITS ---
PROCEDURE INFORMATION: Exam: XR Chest Exam date and time: 08/14/2024 4:15 PM Age: 48 years old Clinical indication: Pain; Angina pectoris; Additional info: Cp TECHNIQUE: Imaging protocol: Radiologic exam of the chest. Views: 1 view. COMPARISON: CR XR cervical spine min 6V [id number] 08/09/2023 7:21 AM FINDINGS: Lungs: No focal consolidation. Pleural spaces: No evidence of pneumothorax. No evidence of pleural effusion. Heart/Mediastinum: Cardiomediastinal silhouette is within normal limits. Bones/joints: No evidence of acute osseous abnormality. XR/XR chest 1V portable [id number] IMPRESSION: 1. No acute cardiopulmonary abnormality.
--- NOTE | 2024-08-14 16:13 | ECG_ITS ---
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 Measurements Intervals [place] Rate: 64 P: 14 ND: 163 QRS: 27 QRSD: 98 T: 36 QT: 383 QTc: 398 Interpretive Statements SINUS RHYTHM Compared to ECG 10/19/2020 17:52:59 No significant changes Electronically Signed On 08-14-2024 22:23:41 CDT by Luke Lora M.D. [id number]
[2024-08-14 16:25] VITALS: BP 143/95; PULSE 76; RESP 16; TEMP 36.5; O2SAT 97
[2024-08-14 17:22] LABS: Basophils % 0.5 %; Eosinophils # 0.2 10^3/uL (0.0-0.8); Eosinophils % 2.5 %; Hematocrit 48.6 % (37-53); Lymphocytes # 3.4 10^3/uL (0.8-4.8); Lymphocytes % 44.1 %; Mean Corpuscular HGB Conc 33.5 g/dL (30-55); Mean Corpuscular Hemoglobin 29.9 pg (27-33); Mean Corpuscular Volume 89.2 fl (82-101); Mean Platelet Volume 8.9 fL (7.4-10.4); Monocytes # 0.4 10^3/uL (0.2-0.9); Monocytes % 5.7 %; Neutrophils # 3.61 10^3/uL (1.8-7.7); Neutrophils % 47.1 %; Nucleated Red Blood Cells % 0 %; Platelet Count 191 10^3/cmm (157-399); Red Blood Count 5.45 10^6/uL (3.85-5.65); Red Cell Distribution Width 12.1 % (12.1-15.1); White Blood Count 7.68 10^3/uL (3.29-11.43)
[2024-08-14 17:25] LABS: INR 0.88 (0.8-1.2)
[2024-08-14 17:30] LABS: Alanine Aminotransferase 55 U/L (0-41); Albumin Level 4.6 g/dL (3.5-5.2); Alkaline Phosphatase 74 U/L (40-130); Aspartate Amino Transferase 32 U/L (0-40); Blood Urea Nitrogen 18 mg/dL (6-20); Carbon Dioxide 23 mmol/L (22-29); Chloride 103 mmol/L (98-107); Creatinine Clr Calc Pharmacy 163.2379; Globulin 2.4 g/dL (1.3-4.6); Glomerular Filtration Rate 119.4 mL/min (90-130); Glucose 93 mg/dL (65-115); Lipase 58 U/L (13-60); Osmolality Calculated 290 mOsm/kg (285-295); Sodium 139 mmol/L (136-145); Total Bilirubin 0.3 mg/dL (0.15-1.2)
[2024-08-14 17:33] LABS: Anion Gap 17.2 (5-19); Potassium 4.2 mmol/L (3.5-5.1); Troponin(5th) Baseline 7 ng/L (0-15)
--- NOTE | 2024-08-14 18:10 | ED_ITS ---
HPI - Chest Pain 2 General: Chief Complaint: Chest Pain Stated Complaint: CP sent from clinic Time Seen by Provider: 08/14/24 17:58 Source: patient Mode of arrival: ambulatory Limitations: no limitations History of Present Illness: 48-year-old male states been having some intermittent chest pains over the last 2 to 3 days. States has been having some pressure pain in his left chest that seem to come and go denies any pain currently said no shortness of breath denies any nausea or diaphoresis no history of coronary disease he states has had some anxiety as well. Associated symptoms: Deny abdominal pain, dyspnea, fever(s), nausea or vomiting Related Data Previous Rx's ?Medication ?Instructions ?Recorded diclofenac sodium 75 mg 75 mg PO BID PRN pain #180 t abs 05/09/24 tablet,delayed release fluticasone propionate 50 2 spray intranasal BID aller gy 05/12/24 mcg/actuation nasal symptoms #16 grams spray,suspension (Flonase Allergy Relief) methocarbamol 750 mg tablet 1,500 mg (2 x 750 mg) PO B EDTIME 05/12/24 PRN muscle spasm 90 days #180 tabs pantoprazole 40 mg tablet,delayed 40 mg PO BID 6 weeks #84 tabs 06/23/24 release (Protonix) empagliflozin 25 mg tablet See Rx Instructions .Route 07/24/24 (Jardiance) .COMPLEX #90 tabs semaglutide 1 mg/dose (4 mg/3 mL) See Rx Instructions .Route 08/07/24 subcutaneous pen injector (Ozempic) .COMPLEX #3 mL Allergies Allergy/AdvReac Type Severity Reaction Status Date / Time iodine Allergy Mild swelling Verified 08/14/24 14:46 Review of Systems 2 Const: Denies: fever(s), chills, body aches or change in appetite ENMT: Denies: throat pain or dental pain Card: Reports: chest pain Resp: Denies: dyspnea GI: Denies: abdominal pain, nausea, vomiting or diarrhea Musc: Denies: neck pain or back pain Skin/Breast: Denies: rash Neuro: Denies: headache(s) PFSH ED 2 PFSH: Medical History Chest pain Flu-like symptoms Tubular adenoma of colon Mixed hyperlipidemia Hepatic steatosis Carpal tunnel syndrome on both sides Chronic sinusitis Cholecystitis Numbness and tingling of upper extremity Numbness and tingling of both upper extremities Nerve compression Hyperkalemia Medication management Impingement of shoulder Acute bacterial sinusitis Lower respiratory infection Infected insect bite of abdomen Tick fever Contact dermatitis Sinusitis Bronchitis Fatigue Muscle spasm Cervical spine pain Headache Diabetes mellitus, type II Patient is Type II DM. He is taking Actos daily and weekly Ozempic. He is compliant with blood glucose monitoring at home. Vitamin D deficiency Will obtain updated labs for anemia, including iron and vitamin B12 Environmental and seasonal allergies Patient has a history of chronic sinusitis with previous sinus surgery. He takes Sudafed as needed for decongestant. Shrimp allergy Bee sting allergy History of colon polyps History of Colon Polyps - last colonoscopy 2018 - [facility] Dr. Gary Surgical History H/O colonoscopy Colonoscopy done August 01, 2018 due to history of colon polyps. Normal, repeat in 5 years. (July 2023) History of appendectomy Status post left rotator cuff repair History of sinus surgery Social History Smoking and tobacco/nicotine status: former use of tobacco/nicotine Second hand smoke exposure: No Alcohol intake: never Substance/Drug Use: never Physical Exam 2 Const: COMMON NORMALS: no acute distress, patient oriented x3 and healthy appearing HENMT: COMMON NORMALS: normocephalic and atraumatic HEAD & SCALP: n ormocephalic and atraumatic Eye: COMMON NORMALS: conjunctivae normal CONJUNCTIVA: Yes conjunctivae normal Neck/C-Spine: COMMON NORMALS: full ROM and supple Chest: COMMONS NORMALS: normal inspection of the chest Resp: COMMON NORMALS: normal respiratory effort, No retractions, No use of accessory muscles and clear to auscultation bilaterally AUSCULTATION: clear to auscultation bilaterally Cardio: COMMON NORMALS: regular rate, regular rhythm and No murmurs present (Cardio) RATE: regular rate RHYTHM: regular rhythm GI: COMMON NORMALS: Normal to inspection, nondistended, normoactive bowel sounds present, Soft to palpation, non-tender and no masses PALPATION: Yes Soft to palpation Extremity: COMMON NORMALS: normal to inspection and full ROM Neuro: COMMON NORMALS: patient oriented x3, moves all extremities and no focal motor deficits Psych: COMMON NORMALS: mental status grossly normal, Normal thought process present and cooperative THOUGHT PROCESS: Normal thought process present Skin: COMMON NORMALS: no rashes or lesions noted and no wounds GENERAL SKIN EXAM: no rashes or lesions noted Course 2 Vital Signs: Vital signs: Vital Signs Temperature 97.7 F 08/14/24 16:25 Pulse Rate 68 08/14/24 18:30 Respiratory Rate 16 08/14/24 18:30 Blood Pressure 130/82 08/14/24 18:30 Pulse Oximetry 94 08/14/24 18:30 Oxygen Delivery Me thod Room Air 08/14/24 18:30 MDM - Chest Pain Medical Decision Making Patient presents for chest pain is atypical in nature he is chest pain-free here. Patient's initial repeat troponins are negative patient stable for discharge follow-up PCP return if worsening. Medical Records I reviewed the patient's medical records. Lab Data I reviewed the patient's lab results. 08/14/24 16:54 08/14/24 16:54 Radiology Impressions Chest X-Ray 08/14/24 16:13 IMPRESSION: 1. No acute cardiopulmonary abnormality. Laboratory Results WBC 7.68 10^3/uL (3.29-11.43) 08/14/24 16:54 RBC 5.45 10^6/uL (3.85-5.65) 08/14/24 16:54 Hgb 16.30 g/dL (11.27-16.99) 08/14/24 16:54 Hct 48.6 % (37-53) 08/14/24 16:54 MCV 89.2 fl (82-101) 08/14/24 16:54 MCH 29.9 pg (27-33) 08/14/24 16:54 MCHC 33.5 g/dL (30-55) 08/14/24 16:54 RDW 12.1 % (12.1-15.1) 08/14/24 16:54 Plt Count 191 10^3/cmm (157-399) 08/14/24 16:54 MPV 8.9 fL (7.4-10.4) 08/14/24 16:54 Neut % (Auto) 47.1 % 08/14/24 16:54 Lymph % (Auto) 44.1 % 08/14/24 16:54 [place] % (Auto) 5.7 % 08/14/24 16:54 Eos % (Auto) 2.5 % 08/14/24 16:54 Baso % (Auto) 0.5 % 08/14/24 16:54 Neut # (Auto) 3.61 10^3/uL (1.8-7.7) 08/14/24 16:54 Lymph # (Auto) 3.4 10^3/uL (0.8-4.8) 08/14/24 16:54 [place] # (Auto) 0.4 10^3/uL (0.2-0.9) 08/14/24 16:54 Eos # (Auto) 0.2 10^3/uL (0.0-0.8) 08/14/24 16:54 Baso # (Auto) 0.0 10^3/uL (0.0-0.1) 08/14/24 16:54 Nucleated RBC % (auto) 0 % 08/14/24 16:54 Nucleated RBCs # 0.0 /100WBC 08/14/24 16:54 PT 12.60 SECONDS (12.1-14.9) 08/14/24 16:54 INR 0.88 (0.8-1.2) 08/14/24 16:54 Sodium 139 mmol/L (136-145) 08/14/24 16:54 Potassium 4.2 mmol/L (3.5-5.1) 08/14/24 16:54 Chloride 103 mmol/L (98-107) 08/14/24 16:54 Carbon Dioxide 23 mmol/L (22-29) 08/14/24 16:54 Anion Gap 17.2 (5-19) 08/14/24 16:54 BUN 18 mg/dL (6-20) 08/14/24 16:54 Creatinine 0.7 mg/dL (0.7-1.2) 08/14/24 16:54 GFR Calculation 119.4 mL/min (90-130) 08/14/24 16:54 Glucose 93 mg/dL (65-115) 08/14/24 16:54 Calculated Osmolality 290 mOsm/kg (285-295) 08/14/24 16:54 Calcium 9.0 mg/dL (8.5-10.5) 08/14/24 16:54 Total Bilirubin 0.3 mg/dL (0.15-1.2) 08/14/24 16:54 AST 32 U/L (0-40) 08/14/24 16:54 ALT 55 U/L (0-41) H 08/14/24 16:54 Alkaline Phosphatase 74 U/L (40-130) 08/14/24 16:54 Troponin T Baseline 7 ng/L (0-15) 08/14/24 16:54 Troponin T 120 Minute 6.22 ng/L (0-15) 08/14/24 18:05 Delta Troponin T -0.78 ABS# (0-10) L 08/14/24 18:05 Total Protein 7.0 g/dL (6.6-8.7) 08/14/24 16:54 Albumin 4.6 g/dL (3.5-5.2) 08/14/24 16:54 Globulin 2.4 g/dL (1.3-4.6) 08/14/24 16:54 Lipase 58 U/L (13-60) 08/14/24 16:54 All radiology interpretation(s) finalized by discharge EKG Data EKG 1: I personally reviewed and interpreted this EKG as follows: EKG interpretation date: 08/14/24 EKG interpretation time: 18:06 Interpretation: nsr hr [address] elevation qrs 96 qtc 400 Discharge Plan Discharge Patient Disposition: Home Clinical Impression: Atypical chest pain Condition: Stable Prescriptions: No Action pantoprazole [Protonix] 40 mg tablet,delayed release (DR/EC) 40 mg PO BID 42 Days Qty: 84 1RF methocarbamol 750 mg tablet 1,500 mg PO BEDTIME PRN (Reason: muscle spasm) 90 Days Qty: 180 1RF fluticasone propionate [Flonase Allergy Relief] 50 mcg/actuation spray,suspension 2 spray intranasal BID Qty: 16 5RF Rx Instructions: administer into each nostril diclofenac sodium 75 mg tablet,delayed release (DR/EC) 75 mg PO BID PRN (Reason: pain) Qty: 180 0RF Jardiance 25 mg tablet See Rx Instructions .ROUTE .COMPLEX Qty: 90 1RF Dose Instruction: TAKE ONE TABLET BY MOUTH DAILY Rx Instructions: TAKE ONE TABLET BY MOUTH DAILY Ozempic 1 mg/dose (4 mg/3 mL) pen injector See Rx Instructions .ROUTE .COMPLEX Qty: 3 0RF Dose Instruction: INJECT 1mg SUBCUTANEOUSLY ONCE WEEKLY Rx Instructions: INJECT 1mg SUBCUTANEOUSLY ONCE WEEKLY Discharge Orders: Discharge ED (Routine); Ordered 08/14/24 Ordered By: Timmy Louis Referrals: DOLORES Ontiveros, DR[employer] CLEANER PRESSER [Primary Care Provider] - 4-7 days Discharge Diet: Advance as tolerated Discharge Activity: Resume usual activity Patient Instructions: Chest Pain (ED) Print Language: Kinyarwanda Coding Level of Care Code ED Clinical Esthetician for Betty Blanca
--- NOTE | 2024-08-14 18:13 | ECG_ITS ---
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 Measurements Intervals [place] Rate: 64 P: 19 LA: 166 QRS: 31 QRSD: 96 T: 38 QT: 390 QTc: 405 Interpretive Statements SINUS RHYTHM WITH SINUS ARRHYTHMIA Compared to ECG 08/14/2024 16:23:43 No significant changes Electronically Signed On 08-14-2024 22:26:20 CDT by Luke Lora M.D. [id number] [id number]
[2024-08-14 18:26] VITALS: BP 139/83; PULSE 69; RESP 16; O2SAT 96
[2024-08-14 18:30] VITALS: BP 130/82; PULSE 68; RESP 16; O2SAT 94
[2024-08-14 18:32] LABS: Troponin 5 2HR 6.22 ng/L (0-15)
[2024-08-14 18:35] LABS: Troponin 5 2HR Delta -0.78 ABS# (0-10)
[2024-08-14 18:55] VITALS: PULSE 72; O2SAT 99
== END 2024-08-14 18:58 | disposition home or self-care (01) ==
PROVIDERS: Emergency Provider Emergency Medicine; PCP Nurse Practitioner Family
DX: R07.89 Other chest pain (principal); Z87.891 Personal history of nicotine dependence; E11.9 Type 2 diabetes mellitus without complications
CPT/HCPCS: 36415; 71045; 80053; 83690; 84484; 85025; 85610; 93005; 99285

== ENCOUNTER → 2024-08-21 09:08 | Outpatient (BNVA) | payer OTHER, SELFPAY | PROVIDERS: PCP Nurse Practitioner Family; Visit Provider Nurse Practitioner Family | DX: R07.9 Chest pain, unspecified (principal); E78.2 Mixed hyperlipidemia; E11.9 Type 2 diabetes mellitus without complications; D64.9 Anemia, unspecified; E87.5 Hyperkalemia; Z79.899 Other long term (current) drug therapy; A93.8 Other specified arthropod-borne viral fevers | CPT/HCPCS: 80053; 81003; 82728; 83036; 83550; 84443; 85025; 86160; 86618; 86666; 86668; 86757 ==

== ENCOUNTER 2024-08-31 15:14 | Outpatient (CLI) | payer OTHER, SELFPAY ==
--- NOTE | 2024-08-31 15:30 | USCV_ITS ---
Gorge Arboleda Age: 48 Gender: M : 1975 Exam Date: 08/31/2024 15:21 Ordering Phys: DOLORES Ontiveros APRN Technologist: R [place] [facility] [place]: chest pain Risk Factors: Previous Vascular Surgery: Right Brachial BP: / Left Brachial BP: / Right Left Velocity (cm/s) Spectral Plaque Velocity (cm/s) Spectral Plaque Syst/Diast Broadening Syst/Diast Broadening 69.50/ 13.80 Prox CCA 75.00 / 19.20 69.50/ 16.00 Mid CCA 66.50 / 15.10 65.10/ 17.10 Distal CCA 56.60 / 16.00 44.60/ 19.40 Prox ICA 37.10 / 15.90 48.40/ 20.80 Mid ICA 51.20 / 21.00 51.90/ 22.80 Distal ICA 39.00 / 19.70 76.40 ECA 62.00 0.70 ICA/CCA 0.70 Antegrade Vertebral Antegrade 36.90/ 12.10 cm/s 38.50/ 12.00 cm/s Tri Subclavian Tri 69.20 102.3 0 CONCLUSIONS Right ICA stenosis <50%. Left ICA stenosis <50%. Normal antegrade Doppler flow noted in the right vertebral artery. Normal antegrade Doppler flow noted in the left vertebral artery. Tony Monge MD (Electronically Signed) Final Date: 31 August 2024 16:41 S
== END 2024-08-31 15:15 | disposition home or self-care (01) ==
PROVIDERS: PCP Nurse Practitioner Family; Visit Provider Nurse Practitioner Family
DX: R07.9 Chest pain, unspecified (principal); E78.2 Mixed hyperlipidemia; I65.23 Occlusion and stenosis of bilateral carotid arteries
CPT/HCPCS: 93880

== ENCOUNTER 2024-10-17 06:05 | Outpatient (CLI) | payer OTHER, SELFPAY ==
--- NOTE | 2024-10-17 06:15 | USCV_ITS ---
Gorge Arboleda Age: 49 Gender: M : 1975 Exam Date: 10/17/2024 06:18 Ordering Phys: DOLORES Ontiveros APRN Technologist: JOSEY [place] [facility] [place]ication: CP BP: 136 / 82 HR: 61 Rhythm: Sinus Technical Quality: Adequate MEASUREMENTS (Male / Female) Normal Values 2D ECHO LV Diastolic Diameter PLAX 5.5 cm 4.2 - 5.9 / 3.9 - 5.3 cm IVS Diastolic Thickness 0.9 cm 0.6 - 1.0 / 0.6 - 0.9 cm IVS Systolic Thickness 2.0 cm LVPW Diastolic Thickness 1.2 cm 0.6 - 1.0 / 0.6 - 0.9 cm LVPW Systolic Thickness 1.4 cm LVOT Diameter 2.0 cm LV Ejection Fraction 2D Teich 57.4 % LV Ejection Fraction MOD 4C 58.6 % LV Ejection Fraction MOD 2C 52.0 % LV Ejection Fraction 2C AL 52.9 % LA Diameter 3.1 cm RA Systolic Volume 4C AL 34.8 ml RA Systolic Volume 4C MOD 33.7 ml LA Sys Volume AL 54.2 cm cubed LA Sys Volume Index AL 22.7 cm cubed/m squared Aorta at Sinotubular Diameter 2.7 cm M-MODE LA Ao Ratio MM 1.2 AV Cusp Separation MM 2.0 cm DOPPLER AV Peak Velocity 134.0 cm/s LVOT Peak Velocity 107.0 cm/s AV Area Cont Eq vti 3.5 cm squared AV Area Cont Eq pk 2.6 cm squared MV Peak Velocity 95.0 cm/s MV Area PHT 3.7 cm squared Mitral E to A Ratio 0.8 TR Peak Velocity 107.0 cm/s TR Peak Gradient 4.6 mmHg TV Peak E Velocity 69.0 cm/s PV Peak Velocity 124.0 cm/s FINDINGS Left Ventricle Normal left ventricular size and systolic function, EF 58%. No regional wall motion abnormalities. Grade I/IV diastolic dysfunction (abnormal relaxation filling pattern), normal to mildly elevated filling pressures. Right Ventricle The right ventricle is normal in size and function. Right Atrium The right atrium is normal in size. Left Atrium The left atrium is normal in size. Mitral Valve No gross abnormalities noted . Aortic Valve Thickened aortic valve. Tricuspid Valve No gross abnormalities noted . Pulmonic Valve No gross abnormalities noted . Pericardium Normal pericardium without effusion. Aorta Normal aortic annulus size. IVC Inferior vena cava not visualized. CONCLUSIONS Normal left ventricular size and systolic function, EF 58%. No regional wall motion abnormalities. Grade I/IV diastolic dysfunction (abnormal relaxation filling pattern), normal to mildly elevated filling pressures. Thickened aortic valve. There is no pericardial effusion. There are no intracardiac masses. No similar previous studies are available for comparison Dr Cynthia Holt MD [facility] (Electronically Signed) Final Date: 19 October 2024 23:06 S
== END 2024-10-17 06:06 | disposition home or self-care (01) ==
PROVIDERS: PCP Nurse Practitioner Family; Visit Provider Nurse Practitioner Family
DX: R07.9 Chest pain, unspecified (principal); R53.83 Other fatigue; R93.1 Abnormal findings on diagnostic imaging of heart and coronary circulation; I35.8 Other nonrheumatic aortic valve disorders
CPT/HCPCS: 93306

== ENCOUNTER → 2024-12-21 13:31 | Outpatient (BNVA) | payer OTHER, SELFPAY | PROVIDERS: PCP Nurse Practitioner Family; Referring Provider Nurse Practitioner Family; Visit Provider Internal Medicine Cardiovascular Disease | DX: R07.9 Chest pain, unspecified (principal) | CPT/HCPCS: 93005 ==

== ENCOUNTER 2025-04-18 11:33 | Outpatient (CLI) | payer OTHER, SELFPAY ==
[2025-04-18 11:44] VITALS: BMI 30.8
--- NOTE | 2025-04-18 11:45 | ECG_ITS ---
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 Interpretive Statements Findings:The patient's baseline blood pressure was 126/85 with a heart rate of 84. Patient exercised on the treadmill using the López protocol and achieved a maximum heart rate of 145 bpm which was 85% of the patient's maximum predicted heart rate. Patient achieved 10.2 METS. The maximum blood pressure was 175/93. The baseline EKG showed normal sinus rhythm with nonspecific mild T wave abnormalities in the inferior leads. There were no new ST or T wave abnormalities and no arrhythmias during the stress test. CONCLUSION: 1. Exercise capacity was average for age. 2. Heart rate response was appropriate. 3. Blood pressure response was appropriate. 4. No symptoms of angina during exercise. 5. Electrocardiogram portion of the stress test without evidence of ischemia. Electronically Signed On 04-18-2025 19:04:02 VISION TEACHER by Jn Robin M.D. [id number]
[2025-04-18 12:19] VITALS: BP 146/72; PULSE 91
== END 2025-04-18 11:34 | disposition home or self-care (01) ==
LOC: CDL 11:34
PROVIDERS: PCP Nurse Practitioner Family; Visit Provider Internal Medicine Cardiovascular Disease
DX: R00.2 Palpitations (principal)
CPT/HCPCS: 93017